=== PATIENT | male | born 1945 | race Hispanic/Latino ===

== ENCOUNTER → 2017-08-18 | Outpatient (CLI) | payer MEDICARE | END | disposition home or self-care (01) | LOC: OIH 10:00 | PROVIDERS: ATTEND Family Medicine | DX: M17.0 Bilateral primary osteoarthritis of knee (principal) | CPT/HCPCS: 73560 ==

== ENCOUNTER → 2021-11-26 | Outpatient (CLI) | payer MEDICARE ==
[2021-11-26 12:32] LABS: BASOPHILS % (AUTO) 1.1 % (0.0-5.0); EOSINOPHILS % (AUTO) 1.5 % (0.0-8.0); HEMATOCRIT 43.5 % (42-54); LYMPHOCYTES % (AUTO) 27.2 % (21.0-51.0); MEAN CORPUSCULAR HEMOGLOBIN 32.5 pg (27.0-33.0); MEAN CORPUSCULAR HGB CONC 34.3 g/dL (32.0-36.0); MONOCYTES % (AUTO) 7.1 % (3.0-13.0); NEUTROPHILS % (AUTO) 62.4 % (40.0-77.0); PLATELET COUNT (AUTO) 125 K/uL (130-400); RED BLOOD CELL COUNT(AUTO) 4.58 MIL/uL (4.50-6.20); RED CELL DISTRIBUTION WIDTH 13.2 % (11.0-15.5); WHITE BLOOD COUNT (AUTO) 8.5 K/uL (4.8-10.8)
== END | disposition home or self-care (01) ==
LOC: LAB 08:29
PROVIDERS: ATTEND Internal Medicine Cardiovascular Disease
DX: E78.5 Hyperlipidemia, unspecified (principal); I10 Essential (primary) hypertension
CPT/HCPCS: 36415; 85025

== ENCOUNTER → 2022-02-10 | Outpatient (CLI) | payer MEDICARE | END | disposition home or self-care (01) | LOC: RAH 14:35 | PROVIDERS: ATTEND Urology | DX: N28.1 Cyst of kidney, acquired (principal); N32.89 Other specified disorders of bladder | CPT/HCPCS: 76770 ==

== ENCOUNTER 2022-04-02 09:04 | Observation (INO) | payer MEDICARE ==
[~2022-04-02] VITALS: Ht 170.2 cm; Wt 73.5 kg
[2022-04-02 09:47] LABS: APPEARANCE,URINE CLEAR (CLEAR); BILIRUBIN,URINE NEGATIVE (NEGATIVE); COLOR,URINE LIGHT-YELLOW (YELLOW); GLUCOSE, URINE (UA) 30 mg/dL (NEGATIVE); KETONES,URINE NEGATIVE (NEGATIVE); LEUKOCYTE ESTERASE ,URINE NEGATIVE Leu/uL (NEGATIVE); NITRATE,URINE NEGATIVE (NEGATIVE); OCCULT BLOOD,URINE NEGATIVE (NEGATIVE); PH,URINE 5.5 (5.0-8.0); PROTEIN,URINE NEGATIVE (NEGATIVE); UROBILINOGEN,URINE 0.2 mg/dL (0.2-1.0)
[2022-04-02 09:52] LABS: BASOPHILS % (AUTO) 0.8 % (0.0-5.0); EOSINOPHILS % (AUTO) 0.4 % (0.0-8.0); HEMATOCRIT 41.9 % (42-54); LYMPHOCYTES % (AUTO) 23.3 % (21.0-51.0); MEAN CORPUSCULAR HEMOGLOBIN 31.6 pg (27.0-33.0); MEAN CORPUSCULAR HGB CONC 33.9 g/dL (32.0-36.0); MEAN CORPUSCULAR VOLUME 93.3 fL (79-99); MONOCYTES % (AUTO) 7.9 % (3.0-13.0); NEUTROPHILS % (AUTO) 67.3 % (40.0-77.0); PLATELET COUNT (AUTO) 153 K/uL (130-400); RED BLOOD CELL COUNT(AUTO) 4.49 MIL/uL (4.50-6.20); RED CELL DISTRIBUTION WIDTH 13.4 % (11.0-15.5); WHITE BLOOD COUNT (AUTO) 7.2 K/uL (4.8-10.8)
[2022-04-02] MEDS ORDERED: DILTIAZEM 25MG INJ IVP ONE (10:00)
[2022-04-02 10:01] LABS: MUCUS,URINE RARE LPF (None Seen); SQUAMOUS EPITHELIAL CELL,UR RARE /HPF (0-2)
[2022-04-02 10:02] LABS: CREATININE 1.9 mg/dL (0.5-1.5); POTASSIUM 4.1 mmol/L (3.5-5.1)
[2022-04-02 10:06] LABS: ALBUMIN 3.6 g/dL (3.5-5.0); DIGOXIN 1.84 ng/mL (0.50-2.00); TOTAL PROTEIN, SERUM 7.6 g/dL (6.0-8.3)
[2022-04-02] MEDS ORDERED: METOPROLOL TARTRATE 25 MG TAB PO ONE (11:00)
[2022-04-02] MEDS ORDERED: CLONIDINE HCL 0.1 MG TABLET PO PRN (12:00)
[2022-04-02] MEDS ORDERED: ACETAMINOPHEN 325 MG TAB PO PRN (12:00)
[2022-04-02] MEDS ORDERED: HYDRALAZINE 20MG/ML VIAL IV PRN (12:00)
[2022-04-02] MEDS ORDERED: LACTULOSE 20 GM/30 ML UDCUP PO PRN (12:00)
[2022-04-02] MEDS ORDERED: TEMAZEPAM 15 MG CAPSULE PO PRN (12:00)
[2022-04-02] MEDS ORDERED: ACETAMINOPHEN 650 MG SUPPOSITORY RC PRN (12:00)
[2022-04-02] MEDS ORDERED: ONDANSETRON 4MG INJ IVP PRN (12:00)
[2022-04-02] MEDS: INSULIN HUMULIN R 100 UNIT/ML 3ML SQ SCH ×3 (16:30→21:00)
[2022-04-02] MEDS ORDERED: KCL 20 MEQ ERTAB PO PRN (17:00)
[2022-04-02] MEDS ORDERED: MAGNESIUM 2GM PREMIX 50ML 50 ML IV PRN (17:00)
[2022-04-02] MEDS ORDERED: DEXTROSE 50%-WATER 50 ML DISP.SYRIN IV PRN (17:00)
[2022-04-02] MEDS ORDERED: GLUCAGON 1MG KIT 1 MG ML IM PRN (17:00)
[2022-04-02] MEDS ORDERED: LIDOCAINE HCL-MPF 1% 2ML VIAL IV PRN ×2 (17:00)
[2022-04-02] MEDS ORDERED: POTASSIUM CHLORIDE 10% ELIXIR 20 MEQ/15 ML UDCUP PO PRN (17:00)
[2022-04-02] MEDS ORDERED: POTASSIUM CHLORIDE 20MEQ/100ML 100 ML IV PRN ×2 (17:00)
[2022-04-02] MEDS ORDERED: METOPROLOL TARTRATE 1 MG/ML 5ML VIAL IV PRN (17:00)
[2022-04-02 17:02] LABS: THYROID STIMULATING HORMONE 1.63 uIU/mL (0.36-3.74)
[2022-04-02] MEDS ORDERED: ALLO100T PO (17:07)
[2022-04-02] MEDS ORDERED: VIBE75TA PO (17:07)
[2022-04-02] MEDS ORDERED: DRON400T7 PO (17:07)
[2022-04-02] MEDS ORDERED: LOSA50TA64 PO (17:07)
[2022-04-02] MEDS ORDERED: ATOR10 PO (17:07)
[2022-04-02] MEDS ORDERED: METO-408 PO (17:07)
[2022-04-02] MEDS ORDERED: DIGO125T17 PO (17:07)
[2022-04-02] MEDS ORDERED: METF500S9 PO (17:07)
[2022-04-02] MEDS ORDERED: APIX5TAB PO (17:07)
[2022-04-02] MEDS ORDERED: METOPROLOL TARTRATE 25 MG TAB PO SCH ×2 (20:30→21:00)
[2022-04-02] MEDS: DRONEDARONE HYDROCHLORIDE 400 MG TABLET PO SCH (20:33)
[2022-04-02] MEDS ORDERED: METOPROLOL SUCCINATE 25 MG TAB.SR.24H PO SCH (21:00)
[2022-04-02] MEDS ORDERED: ENOXAPARIN SODIUM 1 MG/KG SQ SCH (21:00)
[2022-04-02] MEDS ORDERED: DRONEDARONE HYDROCHLORIDE 400 MG TABLET PO SCH (21:00)
[2022-04-02] MEDS ORDERED: ENOXAPARIN SODIUM 80 MG/0.8 ML SQ ONE (21:01)
[2022-04-02 22:20] VITALS: BP 137/76
[2022-04-02 23:43] VITALS: BP 114/54
[2022-04-03 04:11] VITALS: BP 131/62
[2022-04-03 05:23] LABS: EOSINOPHILS % (AUTO) 1.4 % (0.0-8.0); HEMATOCRIT 36.9 % (42-54); LYMPHOCYTES % (AUTO) 36.3 % (21.0-51.0); MEAN CORPUSCULAR HEMOGLOBIN 31.8 pg (27.0-33.0); MEAN CORPUSCULAR HGB CONC 33.3 g/dL (32.0-36.0); MEAN CORPUSCULAR VOLUME 95.3 fL (79-99); MONOCYTES % (AUTO) 8.6 % (3.0-13.0); NEUTROPHILS % (AUTO) 52.4 % (40.0-77.0); PLATELET COUNT (AUTO) 137 K/uL (130-400); RED BLOOD CELL COUNT(AUTO) 3.87 MIL/uL (4.50-6.20); RED CELL DISTRIBUTION WIDTH 13.5 % (11.0-15.5); WHITE BLOOD COUNT (AUTO) 7.1 K/uL (4.8-10.8)
[2022-04-03 05:45] LABS: MAGNESIUM 1.9 mg/dL (1.80-2.40); PHOSPHORUS 3.6 mg/dL (2.5-4.9); POTASSIUM 4.1 mmol/L (3.5-5.1)
[2022-04-03 06:16] LABS: B-TYPE NATRIURETIC PEPTIDE 24 pg/mL (0-100)
[2022-04-03] MEDS: INSULIN HUMULIN R 100 UNIT/ML 3ML SQ SCH ×2 (06:21)
[2022-04-03] MEDS ORDERED: METO-391 PO (07:04)
[2022-04-03 07:40] VITALS: BP 135/65
[2022-04-03] MEDS ORDERED: ENOXAPARIN SODIUM 40 MG/0.4 ML SYRINGE SQ SCH (09:00)
[2022-04-03] MEDS ORDERED: DIGOXIN 125 MCG TABLET PO SCH ×2 (09:00)
[2022-04-03] MEDS ORDERED: ASPIRIN 81MG CHEW TAB PO SCH (09:00)
[2022-04-03] MEDS ORDERED: APIXABAN 5 MG TABLET PO SCH ×2 (09:00)
[2022-04-03] MEDS ORDERED: VIBEGRON 75 MG PO SCH (09:00)
[2022-04-03] MEDS ORDERED: ALLOPURINOL 100 MG TABLET PO SCH (09:00)
[2022-04-03] MEDS ORDERED: METOPROLOL SUCCINATE 50 MG TAB.SR.24H PO SCH (09:00)
[2022-04-03] MEDS: DRONEDARONE HYDROCHLORIDE 400 MG TABLET PO SCH (09:53)
[2022-04-03] MEDS ORDERED: ATORVASTATIN 10 MG TABLET PO SCH (21:00)
== END 2022-04-03 11:00 | disposition home or self-care (01) ==
LOC: EDH 09:04 → EDHIP 11:49 → 3BH 20:37
PROVIDERS: ADMIT Internal Medicine Pulmonary Disease; ATTEND Internal Medicine Pulmonary Disease
DX: I48.20 Chronic atrial fibrillation, unspecified (principal); I12.9 Hypertensive chronic kidney disease with stage 1 through stage 4 chronic kidney disease, or unspecified chronic kidney disease; E11.22 Type 2 diabetes mellitus with diabetic chronic kidney disease; N18.32 Chronic kidney disease, stage 3b; N17.9 Acute kidney failure, unspecified; E11.21 Type 2 diabetes mellitus with diabetic nephropathy; E78.5 Hyperlipidemia, unspecified; M10.9 Gout, unspecified; N40.0 Benign prostatic hyperplasia without lower urinary tract symptoms; I48.0 Paroxysmal atrial fibrillation; M19.90 Unspecified osteoarthritis, unspecified site; R32 Unspecified urinary incontinence; F41.9 Anxiety disorder, unspecified; Z96.659 Presence of unspecified artificial knee joint; Z79.01 Long term (current) use of anticoagulants; Z79.899 Other long term (current) drug therapy
CPT/HCPCS: 96374; 96375; 99285; 80162; 84443; 82550 ×3; 83874 ×3; 84484 ×4; 80053; 85025 ×2; 82948 ×4; 81001; 36415 ×2; 71045; 76770; 93005; 83735; 84100; 80048; 83880; G0378 ×23; J3490; J1650; J3475

== ENCOUNTER → 2022-04-02 | Outpatient (CLI) | payer MEDICARE ==
[~2022-04-02] MED LIST: ALLO100T PO; APIX5TAB PO; ATOR10 PO; DIGO125T17 PO; DRON400T7 PO; LOSA50TA64 PO; METF500S9 PO; METO-391 PO; METO-408 PO; VIBE75TA PO
== END | disposition home or self-care (01) ==
LOC: LAB 08:44
PROVIDERS: ATTEND Internal Medicine Cardiovascular Disease
DX: R00.1 Bradycardia, unspecified (principal)
CPT/HCPCS: 36415; 80162

== ENCOUNTER 2023-07-27 08:33 | Observation (INO) | payer MEDICARE ==
[2023-07-22 11:25] LABS: ALBUMIN 3.6 g/dL (3.5-5.0); BILIRUBIN,TOTAL 2.9 mg/dL (0.2-1.0); CREATININE 1.9 mg/dL (0.5-1.5); POTASSIUM 5.1 mmol/L (3.5-5.1); TOTAL PROTEIN, SERUM 7.4 g/dL (6.0-8.3)
[2023-07-22 12:18] VITALS: BP 171/89; PULSE 49; RESP 16
[~2023-07-27] VITALS: Ht 170.2 cm; Wt 83.0 kg
[2023-07-27] VITALS (23 sets, daily range): BP systolic 114–168; BP diastolic 64–85; PULSE 57–107; RESP 15–20; O2SAT 96
[2023-07-27] MEDS: CEFAZOLIN SODIUM 2 GM VIAL ONE (06:05)
[~2023-07-27 08:33] MED LIST changes: -METF500S9 PO; -METO-408 PO; -VIBE75TA PO
[2023-07-27] MEDS: 0.9%NACL 1000ML 1,000 ML IV ONE (09:00)
[2023-07-27] MEDS: METOPROLOL TARTRATE 25 MG TAB ONE (10:11)
[2023-07-27] MEDS: METOPROLOL TARTRATE 25 MG TAB PO ONE (10:12)
[2023-07-27] MEDS ORDERED: DEXAMETHASONE SOD PHOSPHATE 10MG/ML 1ML VIAL ONE (10:21)
[2023-07-27] MEDS ORDERED: LIDOCAINE PF 100MG/5ML (2%) SYRINGE 5ML ONE (10:21)
[2023-07-27] MEDS ORDERED: GLYCOPYRROLATE 0.2 MG/ML 5 ML VIAL ONE (10:21)
[2023-07-27] MEDS ORDERED: SUCCINYLCHOLINE CHLORIDE 20 MG/ML 10 ML VIAL ONE (10:21)
[2023-07-27] MEDS ORDERED: MIDAZOLAM HCL 1 MG/ML 2ML VIAL ONE (10:21)
[2023-07-27] MEDS ORDERED: PROPOFOL 10 MG/ML 20ML VIAL IV ONE (10:22)
[2023-07-27] MEDS ORDERED: ONDANSETRON 4MG INJ ONE (10:22)
[2023-07-27] MEDS ORDERED: NEOSTIGMINE METHYLSULFATE 1MG/ML IV ONE (10:22)
[2023-07-27] MEDS ORDERED: ROCURONIUM BROMIDE 10MG/1ML 5ML VL ONE (10:22)
[2023-07-27] MEDS ORDERED: FENTANYL CITRATE PF 50 MCG/1 ML 2ML VIAL ONE ×2 (10:23→12:14)
[2023-07-27] MEDS ORDERED: PHENYLEPHRINE HCL 10 MG/ML 1ML VIAL IV ONE (10:25)
[2023-07-27] MEDS ORDERED: TRANEXAMIC ACID 1000MG/10ML ONE (10:46)
[2023-07-27] MEDS: TRANEXAMIC ACID 1000MG/10ML ONE (11:12)
[2023-07-27] MEDS: AMIODARONE 150MG VIAL ONE (11:12)
[2023-07-27] MEDS: CEFAZOLIN SODIUM 1 GM VIAL ONE (12:32)
[2023-07-27] MEDS: 0.9%NACL 48.45 ML, ROPIVACAINE 0.5% 49.25ML, EPINEPH 0.5MG KETOROLAC 30MG,CLONIDINE 80MCG IV PRN (12:32)
[2023-07-27] MEDS: GENTAMICIN SULFATE 80 MG/2 ML VIAL ONE (12:32)
[2023-07-27] MEDS ORDERED: EPHEDRINE SULFATE 50 MG/ML AMPULE ONE (13:23)
[2023-07-27] MEDS: SUGAMMADEX SODIUM 200 MG/2 ML VIAL IV ONE (13:35)
[2023-07-27] MEDS: ALBUMIN (HUMAN) 5% 250 ML IV ONE (14:15)
[2023-07-27] MEDS: HYDROMORPH /0.9% NACL/PF PCA 50 ML IV PRN (16:10)
[2023-07-27] MEDS ORDERED: BENZOCAINE/MENTH/CETYLPYRD CL 1 EACH LOZENGE MM PRN (17:00)
[2023-07-27] MEDS ORDERED: ONDANSETRON 4MG INJ IVP PRN (17:00)
[2023-07-27] MEDS ORDERED: DIPHENHYDRAMINE HCL 25 MG CAPSULE PO PRN (17:00)
[2023-07-27] MEDS ORDERED: DiphenhydrAMINE HCL 50 MG/ML VIAL IM PRN (17:00)
[2023-07-27] MEDS ORDERED: DIPHENOXYLATE HCL/ATROPINE 2.5/0.025 MG TAB PO PRN (17:00)
[2023-07-27] MEDS ORDERED: ACETAMINOPHEN 325 MG TAB PO SCH (17:00)
[2023-07-27] MEDS ORDERED: ACETAMINOPHEN 325 MG TAB PO PRN ×2 (17:00)
[2023-07-27] MEDS: 0.9%NACL 1000ML 1,000 ML IV SCH (17:00)
[2023-07-27] MEDS ORDERED: MAG/ALUM/SIMETH 30 ML UDCUP PO PRN (17:00)
[2023-07-27] MEDS ORDERED: DIPHENHYDRAMINE HCL 25 MG CAPSULE PO SCH (17:00)
[2023-07-27] MEDS ORDERED: LACTULOSE 20 GM/30 ML UDCUP PO PRN (17:00)
[2023-07-27] MEDS ORDERED: GLUCAGON 1MG KIT 1 MG ML IM PRN (17:30)
[2023-07-27] MEDS ORDERED: DEXTROSE 50%-WATER 50 ML DISP.SYRIN IV PRN (17:30)
[2023-07-27] MEDS: CEFAZOLIN SODIUM 1 GM VIAL IVPB SCH (20:33)
[2023-07-27] MEDS: APIXABAN 2.5 MG TABLET PO SCH (20:33)
[2023-07-27] MEDS: INSULIN HUMULIN R 100 UNIT/ML 3ML SQ SCH ×2 (20:37→20:44)
[2023-07-28 03:55] LABS: HEMATOCRIT 36.6 % (42-54); MEAN CORPUSCULAR HGB CONC 34.4 g/dL (32.0-36.0); MEAN CORPUSCULAR VOLUME 95.8 fL (79-99); RED BLOOD CELL COUNT(AUTO) 3.82 MIL/uL (4.50-6.20); WHITE BLOOD COUNT (AUTO) 16.6 K/uL (4.8-10.8)
[2023-07-28 04:00] VITALS: BP_SYST 115; BP_SYST 136; BP_DIAS 50; BP_DIAS 59; PULSE 101; PULSE 66; RESP 20
[2023-07-28 04:24] LABS: POTASSIUM 4.5 mmol/L (3.5-5.1)
[2023-07-28 08:00] VITALS: BP 114/49; PULSE 75; RESP 17
[2023-07-28 08:30] VITALS: O2SAT 97
[2023-07-28 08:40] VITALS: PULSE 75
[2023-07-28] MEDS: DIGOXIN 125 MCG TABLET PO SCH (08:40)
[2023-07-28] MEDS: ALLOPURINOL 100 MG TABLET PO SCH (08:41)
[2023-07-28] MEDS: DRONEDARONE HYDROCHLORIDE 400 MG TABLET PO SCH (08:41)
[2023-07-28] MEDS: LOSARTAN 50 MG TABLET PO SCH (09:00)
[2023-07-28] MEDS: METOPROLOL SUCCINATE 50 MG TAB.SR.24H PO SCH (09:00)
[2023-07-28 09:40] VITALS: PULSE 75
[2023-07-28 15:13] LABS: ALBUMIN 2.9 g/dL (3.5-5.0); BILIRUBIN,TOTAL 1.8 mg/dL (0.2-1.0); CREATININE 1.9 mg/dL (0.5-1.5); POTASSIUM 4.1 mmol/L (3.5-5.1); TOTAL PROTEIN, SERUM 5.7 g/dL (6.0-8.3)
[2023-07-28] MEDS: TRAMADOL HCL 50 MG TABLET PO PRN (15:49)
[2023-07-28] MEDS ORDERED: ATORVASTATIN 10 MG TABLET PO SCH (21:00)
== END 2023-07-28 16:55 | disposition home or self-care (01) ==
LOC: DAH 08:33 → DAHIP 08:34 → DAH 08:34 → 4AH 15:25
PROVIDERS: ADMIT Orthopaedic Surgery; ATTEND Orthopaedic Surgery
DX: M17.12 Unilateral primary osteoarthritis, left knee (principal); I12.9 Hypertensive chronic kidney disease with stage 1 through stage 4 chronic kidney disease, or unspecified chronic kidney disease; E11.22 Type 2 diabetes mellitus with diabetic chronic kidney disease; N18.30 Chronic kidney disease, stage 3 unspecified; E78.5 Hyperlipidemia, unspecified; I25.10 Atherosclerotic heart disease of native coronary artery without angina pectoris; I48.0 Paroxysmal atrial fibrillation; K21.9 Gastro-esophageal reflux disease without esophagitis; N40.0 Benign prostatic hyperplasia without lower urinary tract symptoms; Z79.01 Long term (current) use of anticoagulants; Z96.652 Presence of left artificial knee joint; Z87.442 Personal history of urinary calculi; Z90.49 Acquired absence of other specified parts of digestive tract
CPT/HCPCS: 80053 ×2; 36415 ×2; 93005 ×3; 87641; 27447; 96365; 96366 ×3; 96368; 82948 ×6; 97161; 97012; 97116 ×3; 97530 ×5; 85027; A6260; J1815; G0378 ×22; A4510; A4663; J7030 ×3; A4215 ×2; A4649 ×4; P9045; J3010 ×2; J0690 ×4; J1100; J0330; J3490 ×3; J2001; J1580; J2250; J2704; J2405; J2710; J2371; J0282; A6223; A4930; C1763 ×2; C1776; A5120; A4223; A4335; A4222; A4221; A6450; 80048